=== PATIENT | male | born 1990 | race Two or more races ===

== ENCOUNTER 2022-08-14 14:50 | Outpatient (REF) | payer OTHER, SELFPAY ==
--- NOTE | ~2022-08-14 | XR_ITS ---
EXAMINATION: LEFT HAND/WRIST: CLINICAL INFORMATION: Left wrist effusion. COMPARISON: None TECHNIQUE: 3 views FINDINGS: There is no visible acute fracture, dislocation or subluxation seen. No bony erosive changes. The soft tissues are normal. XR/XR hand wrist LT IMPRESSION: Unremarkable left hand exam.
[2022-08-14 16:21] LABS: MANUAL DIFF FLAG NO
[2022-08-14 16:35] LABS: Basophils Percent Auto 0.6 % (0-2); Eosinophils Absolute Auto 0.4 X10*3/uL (0.0-0.4); Eosinophils Percent Auto 8.4 % (0-4); Hematocrit 41.6 % (42.0-52.0); Hemoglobin 14.1 g/dl (14.0-18.0); Imm Gran Abs Auto 0.01 X10*3/uL (0.00-0.03); Imm Gran Pct Auto 0.2 % (0.0-0.4); Lymphocytes Absolute Auto 2.9 X10*3/uL (1.2-4.9); Lymphocytes Percent Auto 59.8 % (20-40); Mean Corpuscular HGB Conc 33.9 g/dl (31.0-36.0); Mean Corpuscular Hemoglobin 31.5 pg (27.0-33.0); Mean Corpuscular Volume 92.9 fL (80.0-98.0); Mean Platelet Volume 9.8 fL (9.4-12.4); Monocytes Absolute Auto 0.4 X10*3/uL (0.1-1.2); Monocytes Percent Auto 7.7 % (2-11); Neutrophils Absolute Auto 1.1 x10*3/uL (2.0-8.3); Neutrophils Percent Auto 23.3 % (45-73); Platelet Count 251 X10*3/uL (160-400); Red Blood Count 4.48 X10*6/uL (4.60-5.80); Red Cell Distribution Width 11.9 % (11.0-16.0); White Blood Count 4.8 X10*3/uL (4.8-10.8)
[2022-08-14 17:00] LABS: C Reactive Protein < 0.10 mg/dL (< or = 0.50); Rheumatoid Factor < 13.0 IU/mL (<15.0)
[2022-08-14 17:07] LABS: Erythrocyte Sedimentation Rate 2 MM/HR (0-15)
[2022-08-15 08:58] LABS: Lyme Abs Screen <0.90 index
[2022-08-15 12:57] LABS: Cyclic Citrullinated Peptide <16 UNITS
== END 2022-08-14 14:51 | disposition home or self-care (01) ==
LOC: HO.LAB 14:50
PROVIDERS: PCP Physician Assistant Medical; Visit Provider Internal Medicine Rheumatology
DX: M67.432 Ganglion, left wrist (principal); M25.432 Effusion, left wrist
CPT/HCPCS: 36415; 73110; 73130; 85025; 85652; 86140; 86200; 86431; 86617; 86618; 99202